=== PATIENT | male | born 1945 | race Caucasian/White ===

== ENCOUNTER 2020-03-23 22:55 | Emergency (ER) | payer OTHER ==
[~2020-03-23] VITALS: Ht 182.9 cm; Wt 90.0 kg
--- NOTE | 2020-03-23 22:55 | NUR ---
PT ARRIVES TO [facility] ED TRANSPORT FROM [facility]. PT ARRIVES IN NO DISTRESS AND ABLE TO TALK IN COMPLETE SENTENCES. PT VSS AT THIS TIME. PT EDUCATED ON EGD PROCEDURE WITH NIKITA RENO AT BS. CONSENT OBTAINED AND SIGNED AT THIS TIME AND PLACED WITH PT CHART. PT QUESTIONS ANSWERED. CALL LIGHT IS WITHIN REACH.
[2020-03-23] MEDS ORDERED: PROPOFOL 10 MG/ML, 20ML ONE (23:08)
--- NOTE | 2020-03-23 23:24 | NUR ---
Patients [facility] Prakash called. Fredrick (patient) gave this MT permission to give his [facility] information. Patient wasa only transferred to this ED secondary to food impaction and sending facility not having GI. After EGD Dr. Salazar expects patient to be discharged and concerned that she does not feel safe driving all the way down here at night as she is elderly with poor vision. Therefore she has some worry for discharge of patient as he will be receiving sedation in the ED tonight. Called [facility] as they used to have a discounted service for our patients or family members, but they state at this time they are not allowing anyone to stay in their hotel. Same with [facility] and the [facility]. With the concern for a safe discharge this MT spoke with patients who states she will drive down here to this ED in the morning around 7 am and pick him up after his EGD and awakening from sedation. [phone] is [facility] Prakash's phone number if needed.
[2020-03-23] MEDS ORDERED: KETAMINE 10 MG/ML, 20ML ONE (23:25)
[2020-03-23] MEDS ORDERED: PROPOFOL 10 MG/ML, 20ML IVPush ONE (23:30)
--- NOTE | 2020-03-23 23:45 | NUR ---
PT TOLERATED PROCEDURE WELL. PT RECEIVED A TOTAL OF 260 MG PROPOFOL AND 100 KETAMINE DUE TO DIFFICULTY SEDATING PT. PT IS AWEAKE AND ABLE TO ANSWER QUESTIONS AT THIS TIME. PT AAO X 4 AND DENIES ANY PAIN. CALL LIGHT IS WITHIN REACH.
--- NOTE | 2020-03-24 00:28 | NUR ---
VS AND EKG PRINTOUTS ATTACHED TO PT CHART FOR END DOCUMENTATION.
[2020-03-24 00:51] VITALS: BP 120/79
--- NOTE | 2020-03-24 01:22 | NUR ---
PT D/C WITH D/C SUMMARY AND SCRIPTS. ALL QUESTIONS ANSWERED. PT VERBALIZES UNDERSTANDING OF NEED TO F/U WITH GI OUTPATIENT. PT IV D/C WITH TIP INTACT. PT AMBULATES TO REGISTRATION DESK WITH STEADY GAIT FOR D/C HOME WITH FRIEND. PT DENIES ANY OTHER NEEDS AT THIS TIME.
== END 2020-03-24 01:25 | disposition home or self-care (01) ==
LOC: ED 23:59
DX: T18.128A Food in esophagus causing other injury, initial encounter (principal); X58.XXXA Exposure to other specified factors, initial encounter; Y93.89 Activity, other specified; Y92.89 Other specified places as the place of occurrence of the external cause; Y99.8 Other external cause status
CPT/HCPCS: 43247; 99152; 99153; 99285; J2704